=== PATIENT | male | born 1965 | race Caucasian/White ===

== ENCOUNTER 2019-10-26 19:15 | Inpatient (IN) ==
[2019-10-26] MEDS ORDERED: ZOFRAN INJ 4 MG VIAL IVP ONE ×2 (20:14→23:29)
[2019-10-26] MEDS ORDERED: DILAUDID INJ IVP STA ×2 (20:19→23:29)
--- NOTE | 2019-10-26 20:20 | DR.ABDMALE ---
HPI Time seen Time Seen by Provider: 10/26/19 20:14 PCP Primary Care Physician: MAX FERRARA HPI comment HPI Comment: Sudden onset of llq pain this afternoon which has persisted and is now unbearable; intermittent; no fever, chills, vomiting or diarrhea; no dysuria or hematuria or lbp; had paracentesis last per [facility] in [place]; on low salt diet and says she was told to give "Tylenol only for pain" so she's given him 2 gm today without improvement in pain. Complaint Chief Complaint:: " HE IS IN THE PROCESS OF BEING PUT ON A LIVER TRANSPLANT LIST AND HE HAS HERNIA AND HIS DR TOLD US THAT IF HE HAS ANY SEVERE PAIN IN HIS ABD TO COME TO THE ER. TODAY AROUND 4 HE STARTED HAVIGN SEVERE ABD PAIN ON THE LET SIDE." Mode of arrival Mode of Arrival: Ambulatory Timing Onset of Chief Complaint: 10/26/19 PMH PMH Past Medical History: Yes Past Medical History: Hypertension, Kidney Stones and Liver Disease Past Surgical History: Yes Surgical History: Ortho Surgery Past Surgical History Comment: HERNIA REPAIR Family History History of Family Medical Conditions: Yes Family Medical History: Cancer Social History Alcohol Use: None Do you use any recreational Drugs:: No infectious screening Have you traveled outside the country in the last 6 months?: No Isolation: Standard ROS Review of Systems Constitutional: No Symptoms Reported Eyes: No Symptoms Reported ENTM: No Symptoms Reported Respiratoy: No Symptoms Reported Cardiovascular: No Symptoms Reported Gastrointestinal/Abdominal: See HPI Genitourinary: No Symptoms Reported Neurological: No Symptoms Reported Musculoskeletal: No Symptoms Reported Integumentary: No Symptoms Reported PE Vital Signs Vital Signs: Temp Pulse Pulse Resp BP BP Pulse Ox 10/26/19 23:30 72 114/66 95 10/26/19 21:00 18 10/26/19 20:30 22 10/26/19 19:26 98.0 F 64 22 106/53 100 09/14/19 13:00 140/83 General Limitations: No Limitations General Appearance: Alert (in obvious discomfort) Head Head Exam: Normal Inspection, Atraumatic and Normocephalic Eyes Eye exam: Normal Appearance, PERRL and EOMI ENT ENT Exam: Normal Exam and Normal Oropharynx Neck Neck Exam: Normal Inspection and Full ROM Respiratory Respiratory Exam: Normal Lung Sounds Bilat Respiratory Exam: Bilateral: Clear to Auscultation Cardiovascular Cardiovascular Exam: Regular Rate and Normal Rhythm Abdominal Exam Abdominal Exam: Normal Inspection, Normal Bowel Sounds, Soft, Tenderness and Hernia (no crepitus, redness ) Abdominal Tenderness: Diffuse (worse in llq) Back Back Exam: (L) CVA Tenderness Extremeties Extremities Exam: Normal Inspection and Full ROM Neurologic Neurological Exam: Alert and Oriented X3 Psychiatric Psychiatric Exam: Normal Affect and Normal Mood COURSE Reevaluation 1st: Improved 2nd: Worsened (2330 pain has returned after trip to xray) ROR Labs Reviewed Laboratory Results Reviewed?: Yes Result Diagrams: 10/26/19 19:56 10/26/19 19:56 Laboratory: WBC 10.3 X10^3/uL (3.6-10.0) H 10/26/19 19:56 RBC 4.66 X10^6/uL (4.7-6.0) L 10/26/19 19:56 Hgb 15.6 g/dL (13.5-18.0) 10/26/19 19:56 Hct 44.2 % (42.0-54.0) 10/26/19 19:56 MCV 94.8 fL (80.0-100.0) 10/26/19 19:56 MCH 33.5 pg (27.0-34.0) 10/26/19 19:56 MCHC 35.3 g/dL (33.0-35.0) H 10/26/19 19:56 RDW 14.1 % (11.6-16.5) 10/26/19 19:56 Plt Count 124 X10^3/uL (150.0-450.0) L 10/26/19 19:56 MPV 9.6 fL (7.4-11.0) 10/26/19 19:56 Neut % (Auto) 74.8 % (42.0-75.0) 10/26/19 19:56 Lymph % (Auto) 17.8 % (21.0-51.0) L 10/26/19 19:56 Cole % (Auto) 6.6 % (0.0-13.0) 10/26/19 19:56 Eos % (Auto) 0.5 % (0.9-2.9) L 10/26/19 19:56 Baso % (Auto) 0.3 % (0.2-1.0) 10/26/19 19:56 Neut # (Auto) 7.7 x10^3/uL (2.2-4.8) H 10/26/19 19:56 Lymph # (Auto) 1.8 X10^3/uL (1.3-2.9) 10/26/19 19:56 Cole # (Auto) 0.7 x10^3/uL (0.3-0.8) 10/26/19 19:56 Eos # (Auto) 0.0 x10^3/uL (0.0-0.2) 10/26/19 19:56 Baso # (Auto) 0.0 X10^3/uL (0.0-0.1) 10/26/19 19:56 Absolute Nucleated RBC 0.1 /100WBC 10/26/19 19:56 Sodium 124 mmol/L (136-145) L* 10/26/19 19:56 Corrected Sodium 125 mmol/L (136-145) L 10/26/19 19:56 Potassium 5.1 mmol/L (3.5-5.1) 10/26/19 19:56 Chloride 92 mmol/L (98-107) L 10/26/19 19:56 Carbon Dioxide 21.3 mmol/L (21-32) 10/26/19 19:56 BUN 29 mg/dL (7-18) H 10/26/19 19:56 Creatinine 1.45 mg/dL (0.70-1.30) H 10/26/19 19:56 Est GFR (MDRD) Af Amer > 60 (>60) 10/26/19 19:56 Est GFR (MDRD) Non-Af 54 (>60) L 10/26/19 19:56 Glucose 155 mg/dL (65-99) H 10/26/19 19:56 Calcium 8.8 mg/dL (8.5-10.1) 10/26/19 19:56 Corrected Calcium TNP 10/26/19 19:56 Total Bilirubin 1.60 mg/dL (0.2-1.0) H 10/26/19 19:56 AST 94 Units/L (15-37) H 10/26/19 19:56 ALT 99 Units/L (12-78) H 10/26/19 19:56 Alkaline Phosphatase 133 Units/L (46-116) H 10/26/19 19:56 Total Protein 8.5 g/dL (6.4-8.2) H 10/26/19 19:56 Albumin 3.7 g/dL (3.4-5.0) 10/26/19 19:56 Globulin 4.8 g/dL (2.5-4.5) H 10/26/19 19:56 Albumin/Globulin Ratio 0.8 Ratio (1.1-2.1) L 10/26/19 19:56 Specimen Type Clean catch urine 10/26/19 22:59 Urine Color Dark yellow (YELLOW) 10/26/19 22:59 Urine Appearance Slightly hazy (CLEAR) 10/26/19 22:59 Urine pH 5.0 (5.0 - 8.0) 10/26/19 22:59 Ur Specific Warren 1.010 (1.000-1.030) 10/26/19 22:59 Urine Protein 2+ (NEGATIVE) 10/26/19 22:59 Urine Glucose (UA) Negative (NEGATIVE) 10/26/19 22:59 Urine Ketones 1+ (NEGATIVE) 10/26/19 22:59 Urine Occult Blood 5+ (NEGATIVE) 10/26/19 22:59 Urine Nitrite Negative (NEGATIVE) 10/26/19 22:59 Urine Bilirubin Negative (NEGATIVE) 10/26/19 22:59 Urine Urobilinogen Normal (NORMAL) 10/26/19 22:59 Ur Leukocyte Esterase 2+ (NEGATIVE) 10/26/19 22:59 Urine RBC Tntc /HPF (0-3) A 10/26/19 22:59 Urine WBC 3-5 /HPF (0-5) 10/26/19 22:59 Ur Squamous Epith Cells Rare /HPF (NEGATIVE) 10/26/19 22:59 Urine Bacteria Negative /HPF (NEGATIVE) 10/26/19 22:59 Ur Culture Indicated? No/not indicated 10/26/19 22:59 Other Results Comments: IMPRESSION: 1. INTERVAL RESOLUTION OF LARGE AMOUNT OF ABDOMINAL ASCITES AND SHRUNKEN CIRRHOTIC LIVER. THE PATIENT APPEARS TO BE STATUS POST LIVER TRANSPLANTATION. PLEASE CORRELATE WITH PATIENT'S PAST SURGICAL HISTORY. 2. GALLSTONES ARE NOTED 3. SPLENOMEGALY IS PRESENT 4. BILATERAL NONOBSTRUCTING NEPHROLITHIASIS IS SEEN WITH A 3 MM STONE IN THE BASE OF THE URINARY BLADDER WHICH MAY BE ARISING FROM THE LEFT COLLECTING SYSTEM. HOWEVER, PLEASE NOTE THAT THERE IS NO EVIDENCE OF OBSTRUCTIVE UROPATHY. 5. ANTERIOR ABDOMINAL HERNIA IS SEEN CONTAINING A LOOP OF SMALL BOWEL WITH A MILD AMOUNT OF SURROUNDING FREE FLUID AND INFLAMMATION. THE NECK OF THE HERNIA IS 14 MM IN THE SAC MEASURES 42 X 33 MM. THIS MAY REPRESENT AN INCARCERATED HERNIA. PLEASE CORRELATE WITH PHYSICAL EXAMINATION. Opioid Opioid Risk Tool Age (Faisal box if 16-45): No History of Preadolescent Sexual Abuse: No Total: 0 Total Score Risk Category: Low Risk Copyright: Valentino CERSPO predicting aberrant behaviors Diagnosis Discharge Problem: Acute hyponatremia, Bilateral nephrolithiasis Cirrhosis of liver Qualifiers: Hepatic cirrhosis type: other cirrhosis Qualified Code(s): K74.69 - Other cirrhosis of liver Instructions Forms: Excuse From Work
[2019-10-26] MEDS ORDERED: ZOFRAN INJ 4 MG VIAL ONE (20:23)
[2019-10-26] MEDS ORDERED: DILAUDID INJ ONE (20:24)
[2019-10-26 20:30] LABS: BASOPHILS % (AUTO) 0.3 % (0.2-1.0); EOSINOPHILS % (AUTO) 0.5 % (0.9-2.9); HEMATOCRIT 44.2 % (42.0-54.0); HEMOGLOBIN 15.6 g/dL (13.5-18.0); LYMPHOCYTES # (AUTO) 1.8 X10^3/uL (1.3-2.9); LYMPHOCYTES % (AUTO) 17.8 % (21.0-51.0); MEAN CORPUSCULAR HEMOGLOBIN 33.5 pg (27.0-34.0); MEAN CORPUSCULAR HGB CONC 35.3 g/dL (33.0-35.0); MEAN CORPUSCULAR VOLUME 94.8 fL (80.0-100.0); MEAN PLATELET VOLUME 9.6 fL (7.4-11.0); MONOCYTES # (AUTO) 0.7 x10^3/uL (0.3-0.8); MONOCYTES % (AUTO) 6.6 % (0.0-13.0); NEUTROPHILS # (AUTO) 7.7 x10^3/uL (2.2-4.8); NEUTROPHILS % (AUTO) 74.8 % (42.0-75.0); PLATELET COUNT 124 X10^3/uL (150.0-450.0); RED BLOOD COUNT 4.66 X10^6/uL (4.7-6.0); RED CELL DISTRIBUTION WIDTH 14.1 % (11.6-16.5); WHITE BLOOD COUNT 10.3 X10^3/uL (3.6-10.0)
[2019-10-26 20:37] LABS: BLOOD UREA NITROGEN 29 mg/dL (7-18); CALCIUM 8.8 mg/dL (8.5-10.1); CARBON DIOXIDE 21.3 mmol/L (21-32); CHLORIDE 92 mmol/L (98-107); COR NA(FOR HYPERGLY) 125 mmol/L (136-145); CREATININE 1.45 mg/dL (0.70-1.30); eGFR NON BLACK RACES 54 (>60)
[2019-10-26 20:43] LABS: ALANINE AMINOTRANSFERASE 99 Units/L (12-78); ALBUMIN 3.7 g/dL (3.4-5.0); ALKALINE PHOSPHATASE 133 Units/L (46-116); ASPARTATE AMINO TRANSFERASE 94 Units/L (15-37); TOTAL PROTEIN 8.5 g/dL (6.4-8.2)
[2019-10-26 20:47] LABS: SODIUM 124 mmol/L (136-145)
[2019-10-26] MEDS ORDERED: NS 1000 ML 1,000 ML ONE (21:16)
[2019-10-26] MEDS: NS 1000 ML 1,000 ML IV SCH (21:24)
--- NOTE | 2019-10-26 23:04 | CT ---
STUDY: CT ABDOMEN AND PELVIS WITH IV CONTRASTCOMPARISON: NoneTECHNIQUE: Axial images were acquired of the abdomen and pelvis with IV contrast. Sagittal and coronal reformatted images were provided. All images were reviewed in a variety of windows and levels.RADIATION REDUCTION TECHNIQUE: Automated exposure control, Adjustment of the mA and/or kV according to patient size, or iterative reconstruction techniques were used.HISTORY: SEVERE ABD PAIN ON THE LET SIDE, PT IS ON THE LIVER TRANSPLANT LISTFINDINGS:LOWER THORAX: The visualized lower lung zones demonstrates discoid atelectasis. The heart size is within normal limits. There is no evidence of pericardial effusion.LIVER: No intrahepatic focal lesions are seen. No evidence of intrahepatic or extrahepatic biliary duct dilation.The previously seen shrunken and cirrhotic liver is no longer present suggesting that the patient has been status post liver transplant. Please correlate with patient's past surgical history.GALLBLADDER: The gallbladder contains gallstones.SPLEEN: The spleen enhances homogeneously and is enlarged.PANCREAS: The pancreas enhances homogeneously and is unremarkable.ADRENAL GLANDS: The adrenal glands enhance homogeneously and are unremarkable.: The kidneys enhance homogeneously and symmetrically. Their collecting system is of normal caliber. However, there is a 3 mm stone located in the base of the urinary bladder most likely arising from the left collecting system. Bilateral nonobstructing nephrolithiasis is noted.URINARY BLADDER: The urinary bladder is unremarkable. There are no soft tissue masses seen within the urinary bladder.?VESSELS: The abdominal aorta is normal in size without evidence of an aneurysm or dissection. The celiac artery, superior mesenteric artery, [place] renal arteries, and inferior mesenteric artery are patent.?GI: The stomach and small bowel is unremarkable. Few scattered diverticula are seen without evidence of diverticulitis. There are no inflammatory changes seen in the right lower quadrant to suggest secondary signs of acute appendicitis. The appendix is normal. There is an anterior abdominal hernia which contains a loop of small bowel. The neck of the hernia measures 14 mm. The hernia sac measures 42 x 33 mm. There is fluid and edema in the hernia sac which may represent incarceration. Please correlate with physical examination of pain and tenderness in this region. There is interval resolution of the previously seen large amount of abdominal ascites. There is a fat containing left inguinal hernia.LYMPH NODES AND MESENTERY: There is no evidence of retroperitoneal or mesenteric lymphadenopathy. Scattered lymph nodes that are seen in the retroperitoneum and mesentery do not meet CT criteria for large lymph nodes.BONES: The visualized bones demonstrate degenerative changes. There are no concerning lytic or blastic lesions identified.IMPRESSION:1. INTERVAL RESOLUTION OF LARGE AMOUNT OF ABDOMINAL ASCITES AND SHRUNKEN CIRRHOTIC LIVER. THE PATIENT APPEARS TO BE STATUS POST LIVER TRANSPLANTATION. PLEASE CORRELATE WITH PATIENT'S PAST SURGICAL HISTORY.2. GALLSTONES ARE NOTED3. SPLENOMEGALY IS PRESENT4. BILATERAL NONOBSTRUCTING NEPHROLITHIASIS IS SEEN WITH A 3 MM STONE IN THE BASE OF THE URINARY BLADDER WHICH MAY BE ARISING FROM THE LEFT COLLECTING SYSTEM. HOWEVER, PLEASE NOTE THAT THERE IS NO EVIDENCE OF OBSTRUCTIVE UROPATHY.5. ANTERIOR ABDOMINAL HERNIA IS SEEN CONTAINING A LOOP OF SMALL BOWEL WITH A MILD AMOUNT OF SURROUNDING FREE FLUID AND INFLAMMATION. THE NECK OF THE HERNIA IS 14 MM IN THE SAC MEASURES 42 X 33 MM. THIS MAY REPRESENT AN INCARCERATED HERNIA. PLEASE CORRELATE WITH PHYSICAL EXAMINATION.Electronically signed by: Jose A Gee (Oct 26, 2019 23:03:32)
[2019-10-26 23:15] LABS: BILIRUBIN,URINE NEGATIVE (NEGATIVE); BLOOD/HEMOGLOBIN,URINE 5+ (NEGATIVE); GLUCOSE, URINE NEGATIVE (NEGATIVE); KETONES,URINE 1+ (NEGATIVE); LEUKOCYTE ESTERASE ,URINE 2+ (NEGATIVE); NITRITES,URINE NEGATIVE (NEGATIVE); PROTEIN,URINE 2+ (NEGATIVE); UROBILINOGEN,URINE NORMAL (NORMAL)
[2019-10-26 23:18] LABS: APPEARANCE,URINE SLIGHTLY HAZY (CLEAR); COLOR,URINE DARK YELLOW (YELLOW)
[2019-10-26 23:19] LABS: BACTERIA,URINE NEGATIVE /HPF (NEGATIVE); RBC,URINE TNTC /HPF (0-3); SQUAMOUS EPITHELIAL CELL,UR RARE /HPF (NEGATIVE)
[2019-10-26] MEDS ORDERED: ZOFRAN INJ 4 MG VIAL IVP PRN (23:54)
[2019-10-26] MEDS ORDERED: DILAUDID INJ IVP PRN (23:54)
[2019-10-27] MEDS ORDERED: DILAUDID INJ ONE (00:02)
[2019-10-27] MEDS ORDERED: ZOFRAN INJ 4 MG VIAL ONE (00:02)
[2019-10-27 04:31] VITALS: BMI 38.0
[2019-10-27] MEDS ORDERED: NS 1000 ML 1,000 ML ONE (05:11)
[2019-10-27] MEDS: NS 1000 ML 1,000 ML IV SCH ×3 (05:15→17:17)
[2019-10-27 05:41] LABS: BASOPHILS % (AUTO) 0.2 % (0.2-1.0); EOSINOPHILS % (AUTO) 0.1 % (0.9-2.9); HEMATOCRIT 40.8 % (42.0-54.0); HEMOGLOBIN 14.5 g/dL (13.5-18.0); LYMPHOCYTES % (AUTO) 11.6 % (21.0-51.0); MEAN CORPUSCULAR HEMOGLOBIN 34.5 pg (27.0-34.0); MEAN CORPUSCULAR HGB CONC 35.6 g/dL (33.0-35.0); MEAN CORPUSCULAR VOLUME 96.9 fL (80.0-100.0); MEAN PLATELET VOLUME 10.2 fL (7.4-11.0); MONOCYTES # (AUTO) 0.4 x10^3/uL (0.3-0.8); MONOCYTES % (AUTO) 4.9 % (0.0-13.0); NEUTROPHILS # (AUTO) 7.5 x10^3/uL (2.2-4.8); NEUTROPHILS % (AUTO) 83.2 % (42.0-75.0); PLATELET COUNT 105 X10^3/uL (150.0-450.0); RED BLOOD COUNT 4.21 X10^6/uL (4.7-6.0); RED CELL DISTRIBUTION WIDTH 14.1 % (11.6-16.5)
[2019-10-27 05:54] LABS: ALANINE AMINOTRANSFERASE 89 Units/L (12-78); ALBUMIN 3.3 g/dL (3.4-5.0); ALKALINE PHOSPHATASE 106 Units/L (46-116); ASPARTATE AMINO TRANSFERASE 81 Units/L (15-37); BLOOD UREA NITROGEN 26 mg/dL (7-18); CALCIUM 8.5 mg/dL (8.5-10.1); CARBON DIOXIDE 24.3 mmol/L (21-32); CHLORIDE 94 mmol/L (98-107); COR CA(FOR HYPOALB) 9.1 mg/dL (8.5-10.1); COR NA(FOR HYPERGLY) 126 mmol/L (136-145); CREATININE 1.11 mg/dL (0.70-1.30); eGFR NON BLACK RACES > 60 (>60)
[2019-10-27 06:03] LABS: SODIUM 125 mmol/L (136-145)
[2019-10-27] MEDS ORDERED: ZOFRAN TAB 4 MG PO PRN (09:54)
[2019-10-27] MEDS ORDERED: LASIX IVP ONE (09:56)
[2019-10-27] MEDS ORDERED: MOMETASONE FORMOTEROL IN SCH (10:00)
[2019-10-27] MEDS ORDERED: TURMERIC 450 MG PO SCH (10:00)
[2019-10-27] MEDS: FLONASE NASAL SPRAY ENOSTRIL SCH (10:39)
[2019-10-27] MEDS: ALBUMIN HUMAN 25%- 100 ML 100 ML IV SCH (10:39)
[2019-10-27] MEDS: VITAMIN C PO SCH (10:40)
[2019-10-27] MEDS: ARIMIDEX PO SCH (10:40)
[2019-10-27] MEDS: COZAAR PO SCH (10:41)
[2019-10-27] MEDS ORDERED: LASIX IVP SCH (14:00)
[2019-10-27] MEDS ORDERED: COLACE CAP 100 MG PO PRN ×2 (19:44→19:49)
[2019-10-27] MEDS ORDERED: SINGULAIR TAB 10 MG PO SCH (21:00)
[2019-10-27] MEDS: LASIX IVP SCH (21:04)
[2019-10-28] MEDS: NS 1000 ML 1,000 ML IV SCH (01:08)
[2019-10-28] MEDS: LASIX IVP SCH (05:30)
[2019-10-28 06:03] LABS: BASOPHILS % (AUTO) 0.4 % (0.2-1.0); EOSINOPHILS # (AUTO) 0.1 x10^3/uL (0.0-0.2); EOSINOPHILS % (AUTO) 2.7 % (0.9-2.9); HEMATOCRIT 38.7 % (42.0-54.0); HEMOGLOBIN 13.6 g/dL (13.5-18.0); LYMPHOCYTES # (AUTO) 1.6 X10^3/uL (1.3-2.9); MEAN CORPUSCULAR HEMOGLOBIN 33.7 pg (27.0-34.0); MEAN CORPUSCULAR HGB CONC 35.1 g/dL (33.0-35.0); MEAN CORPUSCULAR VOLUME 96.1 fL (80.0-100.0); MEAN PLATELET VOLUME 9.7 fL (7.4-11.0); MONOCYTES # (AUTO) 0.6 x10^3/uL (0.3-0.8); NEUTROPHILS # (AUTO) 3.1 x10^3/uL (2.2-4.8); NEUTROPHILS % (AUTO) 56.9 % (42.0-75.0); PLATELET COUNT 80 X10^3/uL (150.0-450.0); RED BLOOD COUNT 4.03 X10^6/uL (4.7-6.0); RED CELL DISTRIBUTION WIDTH 14.1 % (11.6-16.5); WHITE BLOOD COUNT 5.4 X10^3/uL (3.6-10.0)
[2019-10-28 06:26] LABS: ALANINE AMINOTRANSFERASE 81 Units/L (12-78); ALBUMIN 3.1 g/dL (3.4-5.0); ALKALINE PHOSPHATASE 129 Units/L (46-116); ASPARTATE AMINO TRANSFERASE 72 Units/L (15-37); BLOOD UREA NITROGEN 19 mg/dL (7-18); CALCIUM 7.9 mg/dL (8.5-10.1); CARBON DIOXIDE 25.5 mmol/L (21-32); CHLORIDE 100 mmol/L (98-107); COR CA(FOR HYPOALB) 8.6 mg/dL (8.5-10.1); CREATININE 0.96 mg/dL (0.70-1.30); SODIUM 132 mmol/L (136-145); TOTAL PROTEIN 6.9 g/dL (6.4-8.2); eGFR NON BLACK RACES > 60 (>60)
[2019-10-28] MEDS ORDERED: MILK OF MAGNESIA PO PRN (07:29)
[2019-10-28] MEDS: ALBUMIN HUMAN 25%- 100 ML 100 ML IV SCH (09:16)
[2019-10-28] MEDS: ARIMIDEX PO SCH (09:17)
[2019-10-28] MEDS: VITAMIN C PO SCH (09:19)
[2019-10-28] MEDS: FLONASE NASAL SPRAY ENOSTRIL SCH (09:19)
[2019-10-28 11:10] VITALS: BP 105/52
[2019-10-28] MEDS: COZAAR PO SCH (11:42)
== END 2019-10-28 12:30 | disposition home or self-care (01) | DRG 694 ==
LOC: ICU 19:19 → ER 19:19 → OBSVTOIN 23:48 → ICU 10-27 03:01
PROVIDERS: ADMIT Obstetrics & Gynecology Obstetrics; ATTEND Obstetrics & Gynecology Obstetrics
DX: R10.32 Left lower quadrant pain; N20.0 Calculus of kidney; K74.69 Other cirrhosis of liver; E87.1 Hypo-osmolality and hyponatremia; K76.0 Fatty (change of) liver, not elsewhere classified
CPT/HCPCS: 36415; 74177; 80053; 81001; 85025; 96365; 96367; 96374; 96375; 99284; A4216; A4222; J1170; J1940; J2405; J7030; P9047; S0170

== ENCOUNTER 2023-07-30 14:38 | Observation (INO) ==
[2023-07-30 16:35] VITALS: BMI 41.7
[2023-07-30] MEDS ORDERED: ARIMIDEX PO SCH (17:00)
[2023-07-30] MEDS: ALBUMIN HUMAN 25%- 100 ML 100 ML IV SCH ×4 (17:13→22:02)
[2023-07-30] MEDS: COREG TAB 3.125 MG PO SCH ×2 (17:19→20:44)
[2023-07-30] MEDS: ALDACTONE TAB 25 MG PO SCH ×2 (17:19→20:43)
[2023-07-30] MEDS: LASIX IVP SCH ×2 (17:19→22:00)
[2023-07-30] MEDS: XIFAXAN PO SCH ×2 (17:20→20:44)
[2023-07-30 17:33] LABS: BASOPHILS % (AUTO) 0.5 % (0.2-1.0); EOSINOPHILS # (AUTO) 0.3 x10^3/uL (0.0-0.2); HEMATOCRIT 46.7 % (42.0-54.0); HEMOGLOBIN 16.5 g/dL (13.5-18.0); LYMPHOCYTES # (AUTO) 1.3 X10^3/uL (1.3-2.9); LYMPHOCYTES % (AUTO) 24.4 % (21.0-51.0); MEAN CORPUSCULAR HEMOGLOBIN 35.3 pg (27.0-34.0); MEAN CORPUSCULAR HGB CONC 35.3 g/dL (33.0-35.0); MEAN CORPUSCULAR VOLUME 100.1 fL (80.0-100.0); MEAN PLATELET VOLUME 8.4 fL (7.4-11.0); MONOCYTES # (AUTO) 0.5 x10^3/uL (0.3-0.8); MONOCYTES % (AUTO) 10.2 % (0.0-13.0); NEUTROPHILS # (AUTO) 3.1 x10^3/uL (2.2-4.8); NEUTROPHILS % (AUTO) 59.9 % (42.0-75.0); PLATELET COUNT 93 X10^3/uL (150.0-450.0); RED BLOOD COUNT 4.66 X10^6/uL (4.7-6.0); WHITE BLOOD COUNT 5.2 X10^3/uL (3.6-10.0)
[2023-07-30 17:38] LABS: AMMONIA 57 umol/L (11-32)
[2023-07-30 17:41] LABS: HEMOGLOBIN A1C 5.4 %
[2023-07-30 17:43] LABS: ALANINE AMINOTRANSFERASE 48 Units/L (12-78); ALBUMIN 2.8 g/dL (3.4-5.0); ALKALINE PHOSPHATASE 136 Units/L (46-116); ASPARTATE AMINO TRANSFERASE 46 Units/L (15-37); BLOOD UREA NITROGEN 14 mg/dL (7-18); CALCIUM 7.9 mg/dL (8.5-10.1); CHLORIDE 104 mmol/L (98-107); COR CA(FOR HYPOALB) 8.9 mg/dL (8.5-10.1); COR NA(FOR HYPERGLY) 137 mmol/L (136-145); CREATININE 1.25 mg/dL (0.70-1.30); GLUCOSE 114 mg/dL (65-99); POTASSIUM 3.6 mmol/L (3.5-5.1); SODIUM 137 mmol/L (136-145); TOTAL PROTEIN 7.4 g/dL (6.4-8.2); eGFR NON BLACK RACES > 60 (>60)
[2023-07-30] MEDS ORDERED: CHRONULAC PO SCH ×2 (18:00→20:00)
[2023-07-30] MEDS ORDERED: CONSULT PHARMACY - POTASSIUM & MAGNESIUM XX SCH (19:00)
[2023-07-30] MEDS: BUMEX INJ 1 MG VIAL IV SCH ×3 (19:34→23:30)
[2023-07-30] MEDS: CHRONULAC PO SCH (20:04)
[2023-07-30] MEDS ORDERED: MICRO K EXTEN CAP 10 MEQ PO SCH (21:00)
[2023-07-31] MEDS: CHRONULAC PO SCH (04:22)
[2023-07-31] MEDS: ALBUMIN HUMAN 25%- 100 ML 100 ML IV SCH (05:00)
[2023-07-31] MEDS: LASIX IVP SCH (05:01)
[2023-07-31 06:13] LABS: BASOPHILS % (AUTO) 0.9 % (0.2-1.0); EOSINOPHILS # (AUTO) 0.2 x10^3/uL (0.0-0.2); EOSINOPHILS % (AUTO) 4.7 % (0.9-2.9); HEMATOCRIT 40.3 % (42.0-54.0); HEMOGLOBIN 14.6 g/dL (13.5-18.0); LYMPHOCYTES % (AUTO) 23.1 % (21.0-51.0); MEAN CORPUSCULAR HEMOGLOBIN 35.7 pg (27.0-34.0); MEAN CORPUSCULAR HGB CONC 36.2 g/dL (33.0-35.0); MEAN CORPUSCULAR VOLUME 98.6 fL (80.0-100.0); MEAN PLATELET VOLUME 8.9 fL (7.4-11.0); MONOCYTES # (AUTO) 0.5 x10^3/uL (0.3-0.8); MONOCYTES % (AUTO) 13.2 % (0.0-13.0); NEUTROPHILS # (AUTO) 2.4 x10^3/uL (2.2-4.8); NEUTROPHILS % (AUTO) 58.1 % (42.0-75.0); PLATELET COUNT 77 X10^3/uL (150.0-450.0); RED BLOOD COUNT 4.08 X10^6/uL (4.7-6.0); RED CELL DISTRIBUTION WIDTH 14.9 % (11.6-16.5); WHITE BLOOD COUNT 4.2 X10^3/uL (3.6-10.0)
[2023-07-31 06:31] LABS: ALANINE AMINOTRANSFERASE 42 Units/L (12-78); ALBUMIN 3.2 g/dL (3.4-5.0); ALKALINE PHOSPHATASE 112 Units/L (46-116); ASPARTATE AMINO TRANSFERASE 44 Units/L (15-37); BLOOD UREA NITROGEN 19 mg/dL (7-18); CALCIUM 8.1 mg/dL (8.5-10.1); CARBON DIOXIDE 27.7 mmol/L (21-32); CHLORIDE 103 mmol/L (98-107); COR CA(FOR HYPOALB) 8.7 mg/dL (8.5-10.1); COR NA(FOR HYPERGLY) 138 mmol/L (136-145); CREATININE 1.22 mg/dL (0.70-1.30); GLUCOSE 153 mg/dL (65-99); POTASSIUM 3.9 mmol/L (3.5-5.1); SODIUM 137 mmol/L (136-145); TOTAL PROTEIN 7.1 g/dL (6.4-8.2); eGFR NON BLACK RACES > 60 (>60)
[2023-07-31 09:47] VITALS: BP 117/70; PULSE 71; RESP 18; TEMP 97.1; O2SAT 96
[2023-07-31] MEDS: COREG TAB 3.125 MG PO SCH (11:31)
[2023-07-31] MEDS: ALDACTONE TAB 25 MG PO SCH (11:31)
[2023-07-31] MEDS: XIFAXAN PO SCH (11:31)
--- NOTE | 2023-07-31 11:41 | US ---
EXAM:ABDOMEN ultrasoundHISTORY:ASCITES, BLOATING. SX;SINUS, KNEE, HERNIA -COMPARISON:None.TECHNIQUE:Multiple lockhart scale and color flow Doppler images of the abdomen were obtained with image documentation.FINDINGS:Liver is heterogeneous and echogenic possibly due to fatty infiltration or cirrhosis. It is normal in size. Hepatopetal portal venous flow is seen on Doppler ultrasound. Hepatic artery and vein are patent.Cholelithiasis is seen without evidence of cholecystitis. No biliary ductal dilation.Limited views of the pancreas display no abnormality.There is mild splenomegaly.1.7 cm likely simple cyst is seen in the mid right kidney. Right kidney measures 12.3 cm in length and left kidney measures 12.0 cm in length.Aorta is obscured due to bowel gas. IVC appears normal.IMPRESSION:Liver is normal in size but is echogenic. This could be from fatty infiltration or possibly cirrhosis.There is mild splenomegaly but no ascites is seen.Cholelithiasis is seen without evidence of cholecystitis.THIS IS AN ELECTRONICALLY VERIFIED FINAL [id number]/31/2023 11:37 AM - Electronically signed by Morgan Hummel MD
[2023-08-04] MEDS ORDERED: [UNRECOGNIZED DRUG - OTHER] SUBCUT SCH (09:00)
== END 2023-07-31 12:10 | disposition home or self-care (01) ==
LOC: MED/SURG
PROVIDERS: ADMIT Obstetrics & Gynecology Obstetrics; ATTEND Obstetrics & Gynecology Obstetrics
DX: E11.65 Type 2 diabetes mellitus with hyperglycemia; E83.42 Hypomagnesemia; K76.82 Hepatic encephalopathy; K72.00 Acute and subacute hepatic failure without coma; R41.82 Altered mental status, unspecified; K76.0 Fatty (change of) liver, not elsewhere classified; I10 Essential (primary) hypertension